=== PATIENT | female | born 1985 | race Caucasian/White ===

== ENCOUNTER 2016-08-28 23:46 | Emergency (ER) | payer OTHER ==
[2016-08-28] MEDS ORDERED: OPTIRAY 350 100 ML VIAL HMH IV ONE (23:47)
[2016-08-29] MEDS ORDERED: ONDANSETRON 4 MG VIAL ONE ×2 (01:31→04:35)
[2016-08-29] MEDS ORDERED: DILAUDID 1 MG/ML AMP ONE ×2 (01:32→04:36)
[2016-08-29] MEDS ORDERED: SODIUM CHLORIDE 0.9% 1,000 ML ONE (02:22)
== END 2016-08-29 05:41 | disposition home or self-care (01) ==
LOC: ER 23:46
DX: R10.11 Right upper quadrant pain (principal); K52.9 Noninfective gastroenteritis and colitis, unspecified
CPT/HCPCS: 36415; 74177; 80053; 81003; 83690; 84703; 85025; 96361; 96374; 96375; 96376; 99284; J1170; J2405; Q9967